=== PATIENT | female | born 1935 | race Caucasian/White ===

== ENCOUNTER → 2020-08-11 07:20 | Outpatient (CLI) | payer MEDICARE, OTHER, SELFPAY ==
--- NOTE | 2020-08-10 19:47 | HP.PCM_ITS ---
History and Physical Date of Admission: 08/11/20
--- NOTE | 2020-08-10 19:47 | PCM.HP.BLA ---
History and Physical Date of Admission: 08/11/20
--- NOTE | 2020-08-11 | IMM_PTH ---
PATIENT: MANDEEP MENCHACA I LOC: [facility] U#:[id number] AGE/SX: 89/F ROOM: RE08/11/[address]: Dr. Loreto Cox MD : 1935 BED: DIS: SPEC #: [id number] RECD: 08/12/20 12:22 STATUS: GINO REQ #: [id number] VON: 08/11/20 00:[address]: Loreto Cox DEPT: IMMUNOHISTOCHEMISTRY RECD BY: Iesha Del Rio ENTERED: 08/12/20 12:24 SP TYPE: IMMUNO OTHR DR: Dr. Leonard Reyes MD Tissues: Left breast, NOS Procedures: CALPONIN-1 (add) CK5-6 (add) CK8 (add) E-CAD (add) HER2 DESIREE (add) KI-67 (add) P53 (add) KY (add) P40 (add) ER (initial) PHYSICIAN & INSTITUTION [place] [id number] SPECIMEN INFORMATION: Tissue Source: Left breast, stereotactic core biopsy Clinical Info: 1 cm irregular density left breast at 10 o?clock posterior depth Specimen Number: [id number] #2 CPT code: 75294, 65824 x6, 90193 x3 METHODOLOGY: Deparaffinized sections of prefer/formalin-fixed tissue or PAP/DQ stained slides are incubated with monoclonal/polyclonal antibodies/oligonucleotide probes. Localization is made via biotin free immunoperoxidase method. Appropriate controls are performed and reacted as expected. Results on target cell population are indicated in the following table: RESULTS: ANTIBODY / CLONE RESULT Block 2 E-Cad (ECH-6) positive CK8 (33cnjeM96) positive Calponin-1 (FP620Y) negative CK5-6 (D5 & 1684) negative P40 (BC28) negative P53 (DO-7) negative Ki-67 (30-9) positive, low MORPHOMETRIC ANALYSIS ER (clone 6F11) >95%, strong intensity KY (clone 16/1E2) >95%, moderate intensity Her-2Neu (clone CB11) 0% The prognostic test for HER2 is performed on formalin-fixed paraffin embedded tissue. A 3+ (positive) staining pattern is defined as intense, homogeneous, complete, circumferential membranous staining in >10% of contiguous tumor cells. A similar weak (2+) staining pattern is interpreted as equivocal. DECLAN follow-up testing is recommended for all equivocal cases. Positivity/negativity for ER/KY is reported if > or < 1% of the tumor cells are immuno- reactive, respectively. The ASCO/CAP criteria is used for scoring. Reference: Journal of Clinical Oncology, 2013; 31:2978-8540 & 2010; 16:8895-2444. Duration of fixation: 11 Hrs; Sample Adequate: Yes. These assays have not been validated on decalcified tissues. Results should be interpreted with caution given the likelihood of false negativity on decalcified specimens. These tests were developed and their performance characteristics determined by [facility]. They may not have been cleared or approved by the U.S. Food and Drug Administration. The FDA has determined that such clearance or approval is not necessary. The above immunohistochemical/dualISH markers are ordered and reviewed by the Pathologist. 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 Positive for estrogen receptors (favorable prognostic indicator). Positive for progesterone receptors (favorable prognostic indicator). Negative for overexpression of JZQ2lbd. SJ:khalif 08/15/2020
--- NOTE | 2020-08-11 08:20 | BRBX_PTH ---
PATIENT: MANDEEP MENCHACA I LOC: [facility] U#:[id number] AGE/SX: 89/F ROOM: RE08/11/[address]: Dr. Loreto Cox MD : 1935 BED: DIS: SPEC #: [id number] RECD: 08/11/20 10:58 STATUS: GINO REQ #: [id number] VON: 08/11/20 08:[address]: Loreto Cox DEPT: SURGICAL PATHOLOGY RECD BY: Kate Nichole ENTERED: 08/11/20 12:15 SP TYPE: BREAST BX OT DR: Dr. 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 See comment. AGA:khalif 08/12/2020 COMMENT Immunohistochemistry ([id number]) supports the above diagnosis. ER/MA/Chb3mci studies are being performed on sections of tumor and the results from this study will be reported separately ([id number]). Please make reference to previous specimens ([id number]) right breast, ultrasound-guided mammotome biopsy with diagnosis of ?ductal carcinoma in situ? and ([id number]) right breast tissue, lumpectomy with diagnosis of ?ductal carcinoma in situ.? Case has been reviewed in consultation with Dr. Galaviz who concurs with the above diagnosis. IDC:AM MICROSCOPIC DESCRIPTION Slides are reviewed. GROSS DESCRIPTION Received in fixative is one container labeled with the patient name and designated left breast. The specimen consists of multiple elongated fragments of llamas-yellow fibroadipose tissue that in aggregate measure 5 x 2.5 x 0.3 cm. The entire specimen is submitted in two cassettes. / AGA:khalif 08/11/20 TC:0 CPT: 29402
--- NOTE | 2020-08-11 08:31 | OP.PCM_ITS ---
Report of Operation Date of Procedure: 08/11/20 Pre-Operative Diagnosis: abnormal lesion seen on left breast mammograms Post-Operative Diagnosis: same as above Surgery/Procedure Performed:: left stereotactic breast biopsy Description of Surgical Findings:: mildly dense lesion seen on left breast mammograms and read by radiologist as suspicious lesion Type of Anesthesia: Local (1% xylocaine) Specimen's removed: left breast tissue Estimated Blood Loss (mL): minimal Description of Procedure: After informed consent was given, the patient was brought into the Breast Biopsy suite. Appropriate time out protocol was followed. The patient was placed in the prone position on the stereotactic biopsy table. The patient?s left breast was then placed in the opening at the head of the biopsy table. A maintenance mechanic 2nd shift compression mammogram was then obtained in the lateral view. The suspicious radiological lesion was thus identified. Stereo pictures of the lesion were then taken for XYZ coordinates. The Mammotome biopsy stylus was then positioned where it would be entering into the patient?s breast. The skin at this site was then cleansed with a surgical skin preparation. The skin and subcutaneous tissues at this site were then infiltrated with 1% xylocaine. A small skin incision was made with an 11 blade scalpel. The biopsy stylus was then positioned into the patient?s breast at the proper coordinates of depth. Using the Mammotome vacuum-assist device, several core samples of breast tissue were obtained. A hemostatic marker clip was then placed into the biopsy cavity and a maintenance mechanic 2nd shift film revealed that it was properly deployed. The patient was then placed in the supine position and pressure was applied to the breast until no active bleeding was noted. A nylon suture was placed to reapproximate the skin. A unilateral mammogram in the CC and MLO view were then taken which revealed that the marker clip was in the same area as the previous suspicious lesion. The patient tolerated the procedure well and was discharged from the Breast Biopsy suite in good condition.. Complications none noted
== END ==
PROVIDERS: PCP Family Medicine; Referring Provider Surgery; Visit Provider Surgery
DX: C50.912 Malignant neoplasm of unspecified site of left female breast (principal); R92.8 Other abnormal and inconclusive findings on diagnostic imaging of breast
CPT/HCPCS: 19081; 88305; 88341; 88342; J7050

== ENCOUNTER 2020-08-23 09:41 | Day surgery (SDC) | payer MEDICARE, OTHER, SELFPAY ==
[2016-08-20 21:22] VITALS: BMI 26.6
--- NOTE | 2020-08-17 16:02 | HP.PCM_ITS ---
History and Physical Date of Admission: 08/23/20 HISTORY AND PHYSICAL ? Erin Hurt 1935 ? ? REFERRING PHYSICIAN:?? Loreto Cox MD ? CHIEF COMPLAINT:?? No chief complaint on file. ? HPI: The patient is a 85 year old female with history of right breast DCIS who presented with abnormal left breast radiographs with findings of new left breast cancer - UOQ.. She is?s/p right breast lumpectomy 09/11/16 for DCIS. She is also?s/p left?US guided breast biopsy done on?10/08/2019 ?Pathology reveals:?FINAL DIAGNOSIS?-?Left breast, ultrasound-guided needle core biopsy: ?- Microcalcifications associated with fibrosis and inspissated cyst ?contents. , no evidence of malignancy She denies palpable breast masses. She denies nipple discharge. She denies breast pain. ? Left breast stereotactic biopsy ? ?invasive ductal carcinoma with mucinous differentiation (colloid carcinoma) nuclear grade 1 (0.8 cm in greatest length) ? ER>95% ? OH>95% ? Her2 negative ? ? PAST MEDICAL HISTORY Diagnosis? Date ? Abnormal mammogram? 07/2020 ? left ? Hypertension? Stroke (HCC)? 05/2020 History of right breast DCIS ? ? PAST SURGICAL HISTORY Procedure? Laterality? Date ? BREAST BIOPSY W/STEREOTACTIC GUIDANCE? Left? 08/11/2020 ? CATARACT EXTRACTION HX? SECTION HX ? CYSTOCELE REPAIR? HYSTERECTOMY HX? KNEE ARTHROSCOP MENISCUS REPAIR MED/LAT? PARATHYROID? PAST SURGICAL HISTORY OF? Right? carpel tunnel surgery ? PAST SURGICAL HISTORY OF? Left? carpel tunnel surgery ? ROTATOR CUFF REPAIR ? SALIVARY GLAND? Current Outpatient Medications Medication? Sig ? aspirin, enteric coated (ASPIRIN, ENTERIC COATED) 81 mg EC tablet? Take 81 mg by mouth once daily. ? atorvastatin (LIPITOR) 40 mg tablet? Take 40 mg by mouth once daily. ? clopidogrel (PLAVIX) 75 mg tablet? Take 75 mg by mouth once daily. ? benazepril (LOTENSIN) 20 mg tablet? Take 20 mg by mouth once daily. ? furosemide (LASIX) 20 mg tablet? Take 20 mg by mouth twice daily. ? potassium chloride (K-TAB) 10 mEq tablet? Take 10 mEq by mouth twice daily. ? carvedilol (COREG) 3.125 mg tablet? Take 3.125 mg by mouth twice daily with meals. ? omeprazole (PRILOSEC) 20 mg capsule?? Take 20 mg by mouth once daily. ? CALCIUM CARBONATE/VITAMIN D3 (CALCIUM 600 + D ORAL)??? Take? by mouth. ? niacin (NIACIN) 500 mg tablet? Take 500 mg by mouth daily with breakfast. ? jzaxk-1a-iul-epa-fish oil 1,000-1,400 mg cpDR? Take 1 capsule by mouth once daily. (Patient not taking: Reported on 08/01/2020 ) ? vit A-vit C-vit E-vluv-jvgrws (EYE VITAMIN AND MINERALS) 7,160-113-100 twvr-hz-kztp tab? Take? by mouth. ? UBIDECARENONE/VITAMIN E MIXED (COQ10 SG 100 ORAL)? Take? by mouth. ? Red Yeast Rice Extract 600 mg cap? Take 1 capsule by mouth once daily. (Patient not taking: Reported on 08/01/2020 ) ? cranberry conc-ascorbic acid 4,200-20 mg cap? Take 1 tablet by mouth once daily. ? ? ALLERGIES: Patient has no known allergies. ? PERSONAL HISTORY: Social History ? Tobacco Use ? Smoking status:? Never Smoker ? Smokeless tobacco:? Never Used Substance Use Topics ? Alcohol use:? No ? Drug use:? No ? ? FAMILY HISTORY Problem? Relation? Age of Onset ? Heart? Mother ? Diabetes? Father? Breast Cancer??? Sister? Diabetes? Sister? Diabetes? Brother ? Hypertension??? Brother ? Heart? Sister? other (Other)??? Sister? Polycythemia vera ? Diabetes? Brother ? Hypertension??? Brother ? Diabetes? Brother ? Hypertension??? Brother ? Diabetes? Brother ? Hypertension??? Brother ? ? ? REVIEW OF SYSTEMS: ?General:???The patient NOTES fatigue, denies weight loss, denies weight gain, denies feeling hot, and denies feelings of cold. ?Eyes: ?The patient denies glaucoma, denies eye injury/surgery, wears glasses or contacts. ?Ear/Nose/Throat: ?The patient denies allergies, denies hayfever, denies ear infections, and denies bloody noses. ?Cardiovascular: ?The patient denies chest pain, denies heart disease, NOTES high blood pressure,denies cardiac stent, denies prior heart attack, denies irregular heart beat, denies high cholesterol, ?denies poor circulation, denies heart failure, other cardiac issues, denies claudication, denies cold feet, denies peripheral arterial stent. ?Respiratory: ?The patient denies tuberculosis, denies pneumonia, denies frequent cough, denies pulmonary embolism, denies shortness of breath, and denies coughing up blood. ?Gastrointestinal: ?The patient denies difficulty swallowing, NOTES acid reflux, denies ulcers, denies vomiting, denies jaundice/hepatitis, denies gallbladder problems, denies black or tarry stools, denies hemorrhoids, denies bleeding from rectum, denies diverticulitis, denies constipation, denies diarrhea, denies loss of stool control, and denies hernias. ?Kidney/Bladder: ?The patient denies kidney stones, denies urine infections, and denies bloody urine. ?Skin: ?The patient NOTES a history of skin cancer, denies bleeding/changing moles, and denies a history of skin rash. ?Neurologic: ?The patient denies a history of epilepsy/convulsions, denies headaches, denies head/spinal injuries, and NOTES stroke/TIA. ?Psychiatric: ?The patient denies psychiatric medications, denies depression, and denies voices, denies substance abuse. ?Endocrine: ?The patient denies thyroid disorders, denies diabetes, and denies hormonal problems. ?Hematologic: ?The patient denies a history of bruising, denies bleeding, and denies anemia, denies blood clots. ?Infections: ?The patient NOTES a history of measles and mumps, denies rheumatic fever, and denies sexually transmitted diseases. ?Musculoskeletal: ?The patient denies back pain/injury, denies back problems, denies sciatica, denies knee/foot trouble, NOTES arthritis, or denies gout. ? ? PHYSICAL EXAMINATION: General: ?The patient is 85 year old female, well nourished, well hydrated in no acute distress. ?The patient is oriented to time, place, and person. VITALS:?Blood pressure 142/86, pulse 77, temperature 36.3 ?C (97.3 ?F), height 154.9 cm (5' 1), weight 64.9 kg (143 lb), SpO2 96 %.?Body mass index is 27.02 kg/m?.? Head ??Normocephalic. EOM intact with sclera clear and no icterus noted. Neck - supple with no jugular venous distention noted. Trachea is midline. No thyroid enlargement or thyroid nodules detected. No masses noted. Chest/breast ??no asymmetry of breasts noted, no suspicious skin lesions noted - well healed transverse incision right breast scar and well healed biopsy site of left breast, no nipple discharge and both nipples everted, no breast masses noted Lungs ??clear to auscultation. Normal breath sounds. No rales/rhonchi/wheezing noted. No labored breathing noted, such as retractions. No cough heard. Heart ??normal S1 and S2 auscultated. No rubs/clicks/murmurs noted. Regular r ate. Abdomen ??soft and benign. Normal bowel sounds No abdominal bruits noted. . Extremities ??no calf tenderness noted. No pitting edema noted. Skin ??normal skin integrity. Lymph ??no cervical adenopathy detected, no supraclavicular adenopathy detected, no axillary adenopathy detected Neurological ??gait normal, no focal deficits noted Psych ??calm and appropriate RADIOLOGIC STUDIES: ?As Noted ??? IMPRESSION:?newly diagnosed left breast cancer ? PLAN:?? I have discussed the above with the patient (and her daughter who was on the phone) I have offered options of lumpectomy followed by radiation therapy versus mastectomy.? Patient does not want mastectomy I have offered left breast lumpectomy with left axillary sentinel lymph node biopsy. I have explained the procedure to the patient. I have counseled the patient as to the risks of the procedure, including but not limited to: the risks of surgery, including but not limited to: infection, bleeding, scar tissue, seroma and persistent seroma, lymph leak, injury to any blood vessels, injury to any nerves, cosmetic deformity, dysthesias, wound infections, further surgery (especially if margins are not clear), complications of anesthesia, etc. ? the patient? Understands. ? The patient was offered a surgery/procedure. The provider and patient have discussed in detail the risk of exposure to and/or potential harm posed by the COVID-19 virus with having a surgery/procedure at this time versus the risk of? delaying the surgery/procedure. It is not possible to know either the risk of delaying the surgery or procedure or chance of getting an infection with perfect accuracy, but a joint decision was made between the patient and the provider ?to proceed at this time with the scheduled surgery/procedure. ? The patient wishes to proceed.?? I have answered all questions to the patient?s satisfaction and the patient has no further questions. ? ?. Diagnoses: (C50.412,? Z17.0) Malignant neoplasm of upper-outer quadrant of left breast in female, estrogen receptor positive (HCC)? (primary encounter diagnosis) ? Return to Clinic: The patient is instructed to follow-up with me after the procedure. ? Loreto Cox MD
[2020-08-23] VITALS (7 sets, daily range): BP systolic 127–141; BP diastolic 68–76; PULSE 51–69; RESP 14–18; TEMP 36.3–36.6; O2SAT 95–100; BMI 26.8
--- NOTE | 2020-08-23 | AXNB_PTH ---
PATIENT: MANDEEP MENCHACA I LOC: [facility] [place] U#:[id number] AGE/SX: 85/F ROOM: RE08/23/[address]: Dr. Loreto Cox MD : 1935 BED: DIS: 08/23/2020 SPEC #: [id number] RECD: 08/23/20 14:33 STATUS: GINO REQ #: [id number] VON: 08/23/20 00:[address]: Loreto Cox DEPT: SURGICAL PATHOLOGY RECD BY: Iesha Del Rio ENTERED: 08/23/20 15:43 SP TYPE: AX NODE BX OTHR DR: Dr. Leonard Reyes MD Tissues: A - Axillary lymph node, NOS B - Breast, NOS Procedures: Frozen Section (charge) Surgery Specimen Level IV Surgery Specimen Level V HEADER OPERATION: Left breast lumpectomy, SN with Neoprobe, needle localization PRE-OP DIAGNOSIS: Left breast cancer TISSUE SUBMITTED: A - Left sentinel nodes, FS, B - Left breast mass, two short sutures - medial, one short suture - superior, long suture - lateral, wire - anterior FROZEN SECTION DIAGNOSIS A. Left axillary sentinel lymph node, biopsy: Two out of two lymph nodes, negative for metastatic carcinoma. AGA:khalif 08/23/2020 MICROSCOPIC DIAGNOSIS A. Left sentinel lymph nodes, biopsy: Two out of two lymph nodes, negative for metastatic carcinoma. See comment. B. Left breast mass, lumpectomy with needle localization: A small focus of residual invasive ductal carcinoma with mucinous differentiation (colloid carcinoma). Changes consistent with previous biopsy site. See cancer summary in the comment section. AGA:khalif 08/29/20 COMMENT A. The lymph nodes are negative for metastatic carcinoma on multiple H & E levels and immunohisto-chemical stains for cytokeratins ([id number]). BREAST CANCER SUMMARY Procedure - excision with wire-guided localization Specimen laterality ? left Invasive tumor: Tumor site ? 10 o?clock posterior depth Tumor size ? 0.3 x 0.2 cm (measured microscopically) Histologic type ? invasive ductal carcinoma with mucinous feature (colloid carcinoma). Histologic grade (Ladarius grade): Glandular/tubular differentiation score - 2 Nuclear pleomorphism score - 1 Mitotic count score - 1 Overall grade ? grade 1 (score of 4) Ductal Carcinoma In Situ ? not identified Lobular carcinoma in situ ? not identified Tumor extension: Skin ? present and uninvolved Nipple ? not applicable Skeletal muscle ? no skeletal muscle present. Margins: Invasive carcinoma ? uninvolved by invasive carcinoma. The biopsy cavity is 0.5 cm away from the closest anterior and posterior margins. Ductal carcinoma in situ margin ? not applicable Regional Lymph Nodes: Total number of lymph nodes examined ? 2 Number of sentinel lymph nodes examined - 2 Number of lymph nodes with macrometastases, micrometastases or isolated tumor cells ? 0 Treatment effect ? There is no known presurgical therapy. Lymphvascular invasion ? not identified Dermal lymphvascular invasion ? not identified Additional Pathologic Findings ? intraductal hyperplasia with focal atypia. - Changes consistent with previous biopsy site. Ancillary Studies: Previously performed on same tumor ([id number] / [id number]) ER: positive (>95%, strong intensity) KY: positive (>95%, moderate intensity) Uxd2uml: negative (0) Microcalcifications ? not identified Clinical History - Please make reference to previous specimen ([id number]) left breast, stereotactic core biopsy with diagnosis of ?invasive ductal carcinoma with mucinous differentiation (colloid carcinoma).? Pathologic Stage: pT1 pN0(sn) pMx (see comment below) The above summary is in compliance with [employer] (CAP) Cancer Protocols Checklist and [place] Joint Committee on Cancer (AJCC), Staging Manual, 8th Ed. The invasive carcinoma in the previous specimen core biopsy measures 0.8 cm in greatest length. The overall stage, including specimen biopsy and lumpectomy, is pT1b. Correlation with radiologic findings is necessary for exact size of the tumor. MICROSCOPIC DESCRIPTION Slides are reviewed. GROSS DESCRIPTION A - Received fresh for frozen section diagnosis labeled with the patient's name is a specimen designated sentinel lymph node. The specimen consists of a piece of fibroadipose tissue containing two nodules consistent with lymph nodes measuring 3 x 2.5 x 1 cm. Two fatty lymph nodes are identified measuring 2 and 2.5 cm in greatest dimension. The entire specimen is submitted for frozen section diagnosis in four cassettes as follows: 1 & 2 - one bisected lymph node, 3 & 4 - one bisected lymph node. / SJ:khalif 08/24/20 B - Received fresh for intraoperative consultation labeled with the patient's name is a specimen designated left breast mass. The specimen consists of a piece of fibroadipose tissue with needle localization measuring 5.5 x 8 x 3 cm. A piece of skin is noted anteriorly measuring 0.8 x 0.2 cm. The specimen is oriented as follows: two short sutures - medial, one short suture - superior, one long suture - lateral, wire - anterior. The specimen is inked as follows: anterior - yellow, posterior - black, superior - blue, inferior - green, medial - red and lateral - orange. The specimen is serially sectioned anteriorly and biopsy cavity with surrounding indurated area measuring 1.8 x 1 x 0.6 cm. This biopsy cavity is 0.5 cm from closest anterior and posterior margins. This information is conveyed to the surgeon intraoperatively. Sectioning of the rest of the specimen reveal llamas-yellow adipose cut surfaces mixed with llamas-white fibrous areas. Lokie Engineer sections are submitted in 12 cassettes as follows: 1 - skin and perpendicular medial and lateral margins, 2 - perpendicular superior margin, 3-6 - biopsy cavity, entirely submitted with closest anterior and posterior margins, 7 - community health program representative sections adjacent to the biopsy cavity, 8-12 - community health program representative sections away from the biopsy cavity. The sections are submitted after additional fixation. / SJ:khalif 08/24/20 More sections are submitted as follows: 13 ? perpendicluar inferior margin. / SJ:khalif 08/26/20 TC:0 CPT: 43663 x2, 98324, 80325 x3, 17842
--- NOTE | 2020-08-23 | IMM_PTH ---
PATIENT: MANDEEP MENCHACA I LOC: [facility] [place] U#:[id number] AGE/SX: 85/F ROOM: RE08/23/[address]: Dr. Loreto Cox MD : [id number] BED: DIS: 08/23/2020 SPEC #: [id number] RECD: 08/26/20 14:07 STATUS: GINO REQ #: [id number] VON: 08/23/20 00:[address]: Loreto Cox DEPT: IMMUNOHISTOCHEMISTRY RECD BY: Iesha Del Rio ENTERED: 08/26/20 14:08 SP TYPE: IMMUNO OTHR DR: Dr. Leonard Reyes MD Tissues: A - Axillary lymph node, NOS B - Left breast, NOS Procedures: E-CAD (initial) CALPONIN-1 (add) CK7 (add) CK8 (add) Vimentin (add) Pankeratin (initial) Pankeratin (add) P40 (add) PHYSICIAN & [place] [phone] SPECIMEN INFORMATION: Tissue Source: A ? Left sentinel lymph nodes, B - Left breast lumpectomy with needle localization Clinical Info: Left breast cancer Specimen Number: [id number] A1-4, B4 CPT code: 28580 x2, 66212 x11 METHODOLOGY: Deparaffinized sections of prefer/formalin-fixed tissue or PAP/DQ stained slides are incubated with monoclonal/polyclonal antibodies/oligonucleotide probes. Localization is made via biotin free immunoperoxidase method. Appropriate controls are performed and reacted as expected. Results on target cell population are indicated in the following table: RESULTS: ANTIBODY / CLONE RESULT Block A1 AE1-3 (AE1/AE3/PCK26) negative CK7 (OV-TL12/30) negative Block A2 AE1-3 (AE1/AE3/PCK26) negative CK7 (OV-TL12/30) negative Block A3 AE1-3 (AE1/AE3/PCK26) negative CK7 (OV-TL12/30) negative Block A4 AE1-3 (AE1/AE3/PCK26) negative CK7 (OV-TL12/30) negative Block B4 E-Cad (ECH-6) positive CK8 ([id number]) positive Vimentin (V9) positive in the area of biopsy site P40 (BC28) positive Calponin-1 (AX854M) positive These tests were developed and their performance characteristics determined by [facility]. They may not have been cleared or approved by the U.S. Food and Drug Administration. The FDA has determined that such clearance or approval is not necessary. The above immunohistochemical/dualISH markers are ordered and reviewed by the Pathologist. INTERPRETATION: A. Left sentinel lymph nodes, biopsy: Two out of two lymph nodes, negative for metastatic carcinoma. B. Left breast lumpectomy with needle localization: Intraductal hyperplasia with focal atypia. Changes consistent with previous biopsy site. See comment. AGA:khalif 08/30/2020 Comment: Focus of invasive carcinoma is not seen in the IHC slides.
--- NOTE | 2020-08-23 10:30 | NM_ITS ---
PROCEDURE: NUCLEAR MEDICINE Injection [place] Node - LEFT breast(s). REASON FOR EXAM: Female, 85 years old. Left breast cancer. TECHNIQUE: [place] node localization using radionuclide methods of the LEFT breast(s) was performed following subcutaneous administration of 1.2 mCi of of sulfur colloid Tc-99m. FINDINGS: 1.2 mCi of technetium labeled sulfur colloid was injected subcutaneously in the lateral periareolar region. NM/Lymph Node Injection Only IMPRESSION: 1.2 mCi of technetium labeled sulfur colloid was injected in 4 equal aliquots subcutaneously in the lateral periareolar region. Electronically Signed: Hernesto Gtz MD at 10:41 EDT , Service support ,
[2020-08-23] MEDS: Lactated Ringers 1,000 ML 100 ML IV ×2 (10:38→14:46)
--- NOTE | 2020-08-23 11:00 | BI_ITS ---
SURGICAL BREAST SPECIMEN RADIOGRAPH CLINICAL: Document presence of mass in biopsy specimen. FINDINGS: Specimen shows presence of mass. Electronically Signed: Hernesto Gtz MD at 8:07 EDT , Service support , BI/Breast Biopsy Specimen
[2020-08-23] MEDS: Cefazolin 2 GM in 0.9% Normal Saline 100 ML IV (13:41)
[2020-08-23] MEDS: 0.9% Normal Saline (Pres. free 10 ML Vial (13:50)
[2020-08-23] MEDS: Isosulfan Blue 1% 5 ML Vial (13:50)
--- NOTE | 2020-08-23 15:23 | OP.PCM_ITS ---
Report of Operation Date of Procedure: 08/23/20 Pre-Operative Diagnosis: left breast cancer Post-Operative Diagnosis: same Surgery/Procedure Performed:: left breast lumpectomy via wire localization, left breast sentinel lymph node biopsy via blue and radioactive dye localization Description of Surgical Findings:: two lymph nodes negative for breast cancer transactional paralegal: Tiffany Amado transactional paralegal: Giorgio Hutchinson Type of Anesthesia: General Anesthesiologist: Nabil Hill Specimen's removed: left breast lumpectomy, left axillary lymph dee tissue Drains: none Estimated Blood Loss (mL): < 20 ml Fluids Replaced: 800 ml RL Description of Procedure: After informed consent was given, the patient was brought into the Breast Stereotactic Radiology suite. Appropriate time out protocol was followed. The patient was then placed in the prone position on the [facility] [place] stereotactic table. The patient?s left breast was placed in the opening at the head of the table. A manager of photography compression mammogram was then obtained in the lateral view. The marker clip that was previously placed was identified. Stereo pictures of the lesion were then taken for XYZ coordinates. The Kopans needle was then positioned where it would be entering into the patient?s breast. The skin at this site was then cleansed with a surgical skin preparation. The skin and subcutaneous tissues at this site were then infiltrated with 1% xylocaine. The Kopans needle was then positioned into the patient?s breast at the proper coordinates of depth. A manager of photography film was obtained which revealed the wire in proper position. The patient was then placed in the supine position and the wire was taped into place. A unilateral mammogram in the CC and MLO view were then taken for use in the OR. The patient tolerated this portion of the procedure well and was brought to the AC awaiting surgery in the OR. The patient was then brought to the Operating Room. Appropriate time out protocol was followed. The patient was then placed on the operating table in the supine position. A wire had already been placed in the stereotactic biopsy room in the radiology department as described above. The left breast with the wire in placed was then prepped with a sterile surgical skin preparation and sterile surgical drapes were placed. The patient had radioactive isotope injected earlier this day by the radiologist for radioactive tracer tracking. After the patient was placed under general anesthesia by the anesthesia provider, the periareolar subcutaneous tissues of the left breast were infiltrated with lymhazurin blue dye - diluted to a 50:50 mixture with saline - total of 1 ml used, using a 25G needle. Gentle massage was then done for a few minutes. The left breast with the wire in placed and the torso was then prepped with a sterile surgical skin preparation and sterile surgical drapes were placed. The Neoprobe device was brought into the operative field. A skin incision was made in the inferior portion of the hair bearing area of the left axilla after the skin and subcutaneous tissues were infiltrated with local anesthetic. It was carried through to the subcutaneous tissues using electrocautery. Any hemorrhage was controlled with electrocautery. A Weitlaner retractor was used for increased operative exposure. The Neoprobe 10 second count over the tumor bed was 1319. The 10 second count over the abdominal area was 1. The 10 second count over the axilla was 82. Blunt dissection was conducted into the soft tissues of the axilla. The blue lymphatic vessels were then followed by the blunt dissection until blue colored lymph dee tissue was identified. This lymph dee tissue was from the surrounding tissue by blunt dissection and the vascular pedicles ligated with ligaclips. The Neoprobe 10 second count of the lymph dee tissue was 79. The lymph dee tissue was then forwarded to pathology for frozen section. Pathology revealed that two lymph nodes were n egative for metastatic disease. Careful examination was done in the axilla, no further palpable masses were noted in the axilla. No further blue colored tissue was noted in the axilla. The 10 second Neoprobe count in the axilla was 2. Hemostasis was carefully controlled by electrocautery. Christina was applied to the axillary cavity The deep tissues were approximated with 2-0 vicryl suture. The skin edges were reapproximated with 3-0 vicryl suture in a horizontal mattress fashion and then further closed with running 4-0 monocryl in a subcuticular fashion. Cavilon and steristrips were then placed to reinforce the skin closure and proper sterile dressings were applied. The skin and subcutaneous tissues at the site of the breast lesion was then infiltrated with local anesthetic. A transverse incision was then made at the wire entrance site with a 15 blade scalpel on the left lateral aspect of the breast. It was carried down through to the subcutaneous tissues. Hemostasis was controlled with electrocautery. The wire was then palpated out within the breast tissue. It was brought into the wound from outside. The breast tissue surrounding the wire was then carefully palpated out and from the surrounding tissues using electrocautery. The breast tissue, once from the breast, was then forwarded to the radiology department, where a specimen mammogram revealed that the marker clip was within the specimen. The breast tissue was then forwarded to pathology for analysis. Pathology review revealed that the closest margin was anterior with a measurement of 5 mm. The wound cavity was carefully examined. No further suspicious tissue was palpated or visualized. Hemostasis was carefully controlled with electrocautery. The subdermal tissues were then approximated with vicryl suture. The incision was then reapproximated close using running monocryl suture. Cavilon and steristrips were then placed to reinforce the skin closure. Sponge, needle, and instrument count were verified and correct at the time of skin closure. A sterile dressing was then applied. The patient was then brought to the Recovery Room in stable condition. Complications none noted Admit VTE Documentation VTE Present on Admission: Yes VTE Mechan Device Prophylaxis: SCD's
[2020-08-23] MEDS: Bupiv/Epi 0.25% 30 ML Vial (15:24)
--- NOTE | 2020-08-23 15:33 | DCINST_ITS ---
Discharge Instructions Follow Up Care Test Results: Test results from this visit will be discussed in further detail at your follow-up appointment, if applicable. Discharge Plan Admission Attending Provider: Loreto Cox Primary Care Provider: Leonard Reyes Instructions Additional Instructions / Restrictions: Recommended pain control regimen - May take 600 mg ibuprofen (Motrin) and then in 3-4 hours, may take 650 mg acetaminophen (Tylenol), then in 3-4 hours may take 600 mg ibuprofen, then in 3- 4 hours may take 650 mg acetaminophen and so on for 2-3 days May take narcotic pain medication for pain that is not controlled by above and at night for comfort through the night Leave dressings in place May get dressings wet in shower - do not scrub in the area and pat dry Do not soak - no tub baths/swimming Ice applied to areas of discomfort may help For breast surgery - wear supportive bra during the day, this will prevent the weight of your breast from pulling at the incision site and causing discomfort, ice packs to the area to tuck in your bra may help also Please call for a follow up appointment in about 1 week, . Discharge Orders/Prescriptions Prescriptions: New hydrocodone-acetaminophen 5-325 mg tablet 1 tab PO Q8H 5 Days Qty: 15 RF: 0 No Action atorvastatin 40 mg tablet 40 mg PO DAILY RF: 0 potassium chloride 10 mEq capsule, extended release 10 meq PO DAILY RF: 0 clopidogrel 75 mg tablet 75 mg PO DAILY RF: 0 carvedilol 3.125 mg tablet 3.125 mg PO DAILY RF: 0 cranberry 400 mg Capsule 400 mg PO DAILY RF: 0 omeprazole 20 mg capsule,delayed release(DR/EC) 20 mg PO DAILY RF: 0 furosemide [Lasix] 20 mg tablet 20 mg PO DAILY RF: 0 Calcium 600 + D(3) 600 mg calcium- 200 unit Capsule 1 cap PO DAILY RF: 0 coenzyme Q10 [Co Q-10] 400 mg Capsule 400 mg PO DAILY RF: 0 niacin 500 mg Capsule 1,000 mg PO DAILY RF: 0 Eye Vitamin and Minerals 7,160-113-100 [id number] Tablet 1 tab PO DAILY RF: 0 biotin 5,000 mcg Tablet,Disintegrating 10,000 mcg PO DAILY RF: 0 benazepril [Lotensin] 20 mg Tablet 20 mg PO DAILY RF: 0 Referrals / Follow Up: Leonard Reyes MD [Primary Care Provider] - Disposition Discharge Orders: Discharge Patient (Routine); Ordered 08/23/20 Ordered By: Dr. Loreto Cox
[2020-08-23] MEDS: Acetaminophen 325 MG Tablet 650 MG PO (17:58)
== END 2020-08-23 18:13 ==
LOC: SDC 09:44 → AC 09:45
PROVIDERS: PCP Family Medicine; Referring Provider Surgery; Visit Provider Surgery
PROC: (CPT 19301; principal; 2020-08-23 12:15)
DX: C50.412 Malignant neoplasm of upper-outer quadrant of left female breast (principal); Z17.0 Estrogen receptor positive status [ER+]; I11.0 Hypertensive heart disease with heart failure; I50.9 Heart failure, unspecified; E78.00 Pure hypercholesterolemia, unspecified; K21.9 Gastro-esophageal reflux disease without esophagitis; Z79.02 Long term (current) use of antithrombotics/antiplatelets; Z79.82 Long term (current) use of aspirin; Z79.899 Other long term (current) drug therapy; Z85.3 Personal history of malignant neoplasm of breast; Z85.828 Personal history of other malignant neoplasm of skin; Z86.73 Personal history of transient ischemic attack (TIA), and cerebral infarction without residual deficits
CPT/HCPCS: 00400; 19301; 38525; 19281; 38792; 76098; 88305; 88307; 88331; 88341; 88342; A9541; J7120; J2405; J3490; Q9968

== ENCOUNTER 2020-08-28 22:31 | Emergency (ER) | payer MEDICARE, OTHER, SELFPAY ==
[2020-08-23 10:15] VITALS: BMI 26.8
[2020-08-28 22:32] VITALS: BP 153/89; PULSE 62; RESP 18; TEMP 36.2; O2SAT 96; BMI 26.8
--- NOTE | 2020-08-28 22:46 | EDS_ITS ---
HPI History of Present Illness Chief Complaint: Wound Check Narrative Narrative: Patient presents with postoperative bruising left chest. She had a recent lumpectomy. She noticed some postop bruising and wanted to make sure everything was okay as she is on Plavix. She restarted after the surgery. Has normal postoperative discomfort [facility] Medical History Cancer Congestive heart failure (CHF) GERD (gastroesophageal reflux disease) Hearing loss, left Hearing loss, right High cholesterol History of stress test Hypertension Loose, teeth Post-menopausal Shortness of breath on exertion Stroke/cerebrovascular accident Wears glasses Home Medications atorvastatin 40 mg PO DAILY 08/17/20 [History Last Taken Unknown] benazepril [Lotensin] 20 mg PO DAILY 08/17/20 [History Last Taken 08/23/20 07:30 20 mg] biotin 10,000 mcg PO DAILY 08/17/20 [History Last Taken Unknown] calcium carbonate-vitamin D3 [Calcium 600 + D(3)] 1 cap PO DAILY 08/17/20 [History Last Taken Unknown] carvedilol 3.125 mg PO DAILY 08/17/20 [History Last Taken 08/23/20 07:30 3.125 mg] clopidogrel 75 mg PO DAILY 08/17/20 [History Last Taken Unknown] coenzyme Q10 [Co Q-10] 400 mg PO DAILY 08/17/20 [History Last Taken Unknown] cranberry 400 mg PO DAILY 08/17/20 [History Last Taken Unknown] furosemide [Lasix] 20 mg PO DAILY 08/17/20 [History Last Taken Unknown] niacin 1,000 mg PO DAILY 08/17/20 [History Last Taken Unknown] omeprazole 20 mg PO DAILY 08/17/20 [History Last Taken 08/23/20 07:30 20 mg] potassium chloride 10 meq PO DAILY 08/17/20 [History Last Taken Unknown] vit A-vit C-vit K-ishk-tpyhts [Eye Vitamin and Minerals] 1 tab PO DAILY 08/17/20 [History Last Taken Unknown] hydrocodone-acetaminophen 1 tab PO Q8H 5 Days #15 tab 08/23/20 [Rx Last Taken Unknown] Allergy/AdvReac Type Severity Reaction Status Date / Time No Known Allergies Allergy Verified 08/28/20 22:34 Surgical History H/O cardiac catheterization History of hysterectomy History of parathyroid surgery Hx of breast surgery Hx of hand surgery Social History Smoking Status: Never smoker ROS ROS ED ROS Narrative ROS General: Denies fever, chills, sweats Eyes: Denies visual changes, blurred vision, double vision ENT: Denies ear pain, rhinorrhea, sore throat Cardiovascular: Denies chest pain, palpitations, heart racing Respiratory: Denies dyspnea, cough, sputum, dyspnea on exertion, orthopnea,PND GI: Denies abdominal pain, nausea, vomiting, diarrhea, constipation, melena : Denies dysuria, hematuria, frequency Musculoskeletal: Denies myalgias, arthralgias, neck pain, back pain Skin: HPI Neuro: Denies headache, weakness, paresthesia Psych: Denies depression, anxiety Endo: Denies polyuria, polydipsia, polyphagia Heme: Denies easy bruising, easy bleeding, lymphadenopathy Allergy: Denies hives, swelling EXAM Physical Exam Narrative Exam Narrative: Vital signs reviewed General: Well-nourished well-developed Head: Normocephalic atraumatic Eyes: Pupils equal round and reactive to light extraocular movements intact ENT: TMs clear no hemotympanum no trauma Neck: Nontender full range of motion Cardiovascular: Regular rate rhythm no murmurs normal S1-S2 Respiratory: No distress clear to auscultation bilaterally chest nontender Abdomen: Soft nontender nondistended normal bowel sounds no masses Back: Nontender no CVA tenderness Extremities: Nontender active range of motion ?4 extremities no trauma Skin: Patient's left breast has some normal postoperative swelling without hematoma. Normal postoperative blood bruising. Neuro alert oriented cranial nerves II through XII intact normal strength sensation reflexes Const Vital Signs: 08/28/20 22:32 Temperature 97.1 F L Temperature Source Temporal Pulse Rate 62 Respiratory Rate 18 Blood Pressure 153/89 H Blood Pressure Mean 110 Pulse Ox 96 Oxygen Delivery Method Room Air MDM MDM MDM Narrative Medical decision making narrative: Patient reassured. There is no evidence of hematoma or abnormality. She has normal postoperative mild swelling and bruising. To follow-up with her outpatient surgeon in 2 days Discharge Plan Triage Chief Complaint: Wound Check ED Provider: Kuldeep Robbins Dx/Rx/DC Orders Clinical Impression: Encounter for post surgical wound check Instructions: ED Post Op Wound Check, General Prescriptions: No Action atorvastatin 40 mg tablet 40 mg PO DAILY RF: 0 potassium chloride 10 mEq capsule, extended release 10 meq PO DAILY RF: 0 clopidogrel 75 mg tablet 75 mg PO DAILY RF: 0 carvedilol 3.125 mg tablet 3.125 mg PO DAILY RF: 0 cranberry 400 mg Capsule 400 mg PO DAILY RF: 0 omeprazole 20 mg capsule,delayed release(DR/EC) 20 mg PO DAILY RF: 0 furosemide [Lasix] 20 mg tablet 20 mg PO DAILY RF: 0 Calcium 600 + D(3) 600 mg calcium- 200 unit Capsule 1 cap PO DAILY RF: 0 coenzyme Q10 [Co Q-10] 400 mg Capsule 400 mg PO DAILY RF: 0 niacin 500 mg Capsule 1,000 mg PO DAILY RF: 0 Eye Vitamin and Minerals 7,160-113-100 [id number] Tablet 1 tab PO DAILY RF: 0 biotin 5,000 mcg Tablet,Disintegrating 10,000 mcg PO DAILY RF: 0 benazepril [Lotensin] 20 mg Tablet 20 mg PO DAILY RF: 0 hydrocodone-acetaminophen 5-325 mg tablet 1 tab PO Q8H 5 Days Qty: 15 RF: 0 Primary Care Provider: Leonard Reyes Referrals: Leonard Reyes MD [Primary Care Provider] - Disposition Disposition: Home, self care
[2020-08-28 22:54] VITALS: RESP 18
== END 2020-08-28 22:56 | disposition home or self-care (01) ==
LOC: ED 22:52
PROVIDERS: Emergency Provider Emergency Medicine; PCP Family Medicine
DX: Z48.01 Encounter for change or removal of surgical wound dressing (principal); E78.00 Pure hypercholesterolemia, unspecified; I50.9 Heart failure, unspecified; I11.0 Hypertensive heart disease with heart failure; K21.9 Gastro-esophageal reflux disease without esophagitis; Z79.02 Long term (current) use of antithrombotics/antiplatelets
CPT/HCPCS: 99282

== ENCOUNTER → 2021-12-14 | Outpatient (CLI) | payer MEDICARE, OTHER, SELFPAY ==
--- NOTE | 2021-12-14 14:28 | VDLE_ITS ---
Reason For Study: Pain RIGHT GSV is normal. CFV is compressible, spontaneous, phasic, competent and demonstrates normal augmentation. FV is compressible, spontaneous, phasic, competent and demonstrates normal augmentation. POP V is compressible, spontaneous, phasic, competent and demonstrates normal augmentation. T/P Trunk is compressible. PTV is compressible. RT PerV is compressible. Nonvascularized structure noted in the right popliteal fossa that measures 0.80 x 3.57 x 2.88 cm. Procedure This is a venous duplex using B-mode, color flow and spectral Doppler. Exam performed in department. A preliminary report was called and/or faxed to [facility]. VL/Venous Duplex US, Unilateral Interpretation Summary Deep veins of the right lower extremity are patent and compressible segmentally . There is no evidence of right lower extremity deep vein thrombosis. The right great sapheno us vein appears patent and compressible segmentally. Incidental finding non-vascularize structure in the right popliteal fossa 0.8 x 3.57 x 2.88 cm Ordering Physician: Stepan Abbott Referring Physician: Leonard Reyes Performed By: Eli Lin RVT
== END | disposition home or self-care (01) ==
LOC: CVS 14:26
PROVIDERS: PCP Family Medicine; Referring Provider Physician Assistant; Visit Provider Physician Assistant
DX: M79.661 Pain in right lower leg (principal)
CPT/HCPCS: 93971